=== PATIENT | female | born 1955 | race Hispanic/Latino ===

== ENCOUNTER 2018-04-29 15:31 | Outpatient (CLI) | payer OTHER ==
--- NOTE | 2018-04-29 18:29 | MRI ---
MRI OF RIGHT SHOULDER WITHOUT CONTRAST: 04/29/18 HISTORY: Shoulder injury. Rotator cuff tear. COMPARISON: None. FINDINGS: BICEPS TENDON: Mild intra-articular tendinosis. No tear. LABRUM: There is a posterior superior labral tear. This does not extend to the biceps anchor nor anterior to the biceps tendon. ROTATOR CUFF: Mild tendinosis subscapularis. There is low grade hidden interstitial tear of the footplate of the an terior 1 cm supraspinatus tendon approximately 20% in thickness. Low grade interstitial tearing of th e infraspinatus tendon and bursal surface fraying. MUSCLES: The muscle signal and bulk is normal. BONES: Type I acromion. No fracture or malalignment. SOFT TISSUES: Mild loss of subcoracoid fat and edema in the rotator interval. IMPRESSION: 1. Mild subacromial subdeltoid bursal effusion. 2. Hidden interstitial tear footplate of the anterior 1 cm fibers supraspinatus tendon involving less than 20% of the foot plate thickness. 3. Mild bursal surface fraying of supraspinatus tendon with some narrowing of the subacrominal s pace due to lateral downsloping of the acromion. 4. Posterior superior labral tear. POS: H
== END 2018-04-29 15:32 | disposition home or self-care (01) ==
LOC: MRI 15:31
PROVIDERS: ATTEND Physical Medicine & Rehabilitation
DX: S49.91XA Unspecified injury of right shoulder and upper arm, initial encounter (principal); S46.011A Strain of muscle(s) and tendon(s) of the rotator cuff of right shoulder, initial encounter; S43.491A Other sprain of right shoulder joint, initial encounter

== ENCOUNTER 2021-09-02 14:05 | Inpatient (IN) | payer BC ==
[2021-09-02 15:27] VITALS: BMI 23.3
[2021-09-02] MEDS ORDERED: Dextrose 50% Abboject 50 ML SYRINGE SLOW IVP PRN (16:08)
[2021-09-02] MEDS ORDERED: hydrALAZINE 20 MG/ML VIAL SLOW IVP PRN (16:08)
[2021-09-02] MEDS ORDERED: Ondansetron PF 4 MG/2 ML Vial IVP PRN (16:08)
[2021-09-02] MEDS ORDERED: Dextrose 5% in Water 1,000 ML IV PRN (16:08)
[2021-09-02] MEDS: Sodium Chloride 0.9% 1,000 ML IV SCH (17:09)
[2021-09-02] MEDS: Acetaminophen 500 MG TAB PO SCH ×2 (17:09→23:28)
[2021-09-02] MEDS: Famotidine 20 MG TAB PO SCH (20:39)
[2021-09-02] MEDS: Senokot S 8.6-50 MG TAB PO SCH (20:39)
[2021-09-02] MEDS: Ciprofloxacin 500 MG TAB PO SCH (20:39)
[2021-09-03] MEDS: Acetaminophen 500 MG TAB PO SCH ×2 (03:20→10:05)
[2021-09-03] MEDS: Sodium Chloride 0.9% 1,000 ML IV SCH (03:21)
[2021-09-03 05:36] LABS: #Lymphocytes 2.6 thou/uL (1.20-3.40); #Monocytes 0.4 thou/uL (0.11-0.59); #Neutrophils 2.8 thou/uL (1.40-6.50); %Basophils 0.2 % (0.0-1.0); %Eosinophils 0.1 % (0.0-10.0); %Lymphocytes 44.4 % (21.0-51.0); %Monocytes 6.9 % (0.0-10.0); %Neutrophils 48.5 % (42.0-75.0); Hemoglobin 14.1 g/dL (12.0-16.0); Mean Corpuscular HGB CONC 32.7 g/dL (32.0-36.0); Mean Corpuscular Hemoglobin 31.3 pg (27.0-31.0); Mean Corpuscular Volume 95.8 fL (78.0-98.0); Mean Platelet Volume 7.8 fL (7.4-10.4); Platelet Count 170 thou/uL (130-400); RBC Distribution Width 12.3 % (11.5-14.5); White Blood Cell (WBC) Count 5.8 thou/uL (4.8-10.8)
[2021-09-03 06:01] LABS: ALT (SGPT) 82 U/L (8-55); AST (SGOT) 55 U/L (5-34); Albumin 3.6 g/dL (3.4-4.8); Alkaline Phosphatase 90 U/L (40-110); Anion Gap 12 mmol/L (10-20); BUN (Urea Nitrogen) 9 mg/dL (9.8-20.1); Bilirubin, Total 0.8 mg/dL (0.2-1.2); Calc. Creatinine Clearance 76 mL/min (70-130); Calcium 8.8 mg/dL (7.8-10.44); Carbon Dioxide 24 mmol/L (23-31); Chloride 106 mmol/L (98-107); Globulin 2.8 g/dL (2.4-3.5); Glucose 114 mg/dL (80-115); Magnesium 2.1 mg/dL (1.6-2.6); Phosphorus 3.9 mg/dL (2.3-4.7); Potassium 3.9 mmol/L (3.5-5.1); Protein, Total 6.4 g/dL (5.8-8.1); Sodium 138 mmol/L (136-145)
[2021-09-03 08:12] VITALS: TEMP 97.6
[2021-09-03] MEDS ORDERED: Polyethylene Glycol 3350 17 GM Packet PO SCH (09:00)
[2021-09-03] MEDS: Famotidine 20 MG TAB PO SCH (10:05)
[2021-09-03] MEDS: Senokot S 8.6-50 MG TAB PO SCH (10:09)
[2021-09-03] MEDS: Ciprofloxacin 500 MG TAB PO SCH (10:09)
[2021-09-03 11:36] LABS: SARS-CoV-2 PCR by NAA DETECTED (NotDetected)
[2021-09-03 21:57] VITALS: BP 120/64
[2021-09-05] MEDS ORDERED: FLU VACC QS2021-22(6MOS UP)/PF 60 MCG/0.5 ML SYRINGE IM ONE (18:45)
== END 2021-09-03 18:32 | disposition home or self-care (01) | DRG 82 ==
LOC: NEURO 15:13 → OBSVTOIN 16:08
PROVIDERS: ADMIT Surgery; ATTEND Surgery
DX: S06.5X9A Traumatic subdural hemorrhage with loss of consciousness of unspecified duration, initial encounter (principal); U07.1 COVID-19; K86.2 Cyst of pancreas; S06.6X9A Traumatic subarachnoid hemorrhage with loss of consciousness of unspecified duration, initial encounter; I82.811 Embolism and thrombosis of superficial veins of right lower extremity; N39.0 Urinary tract infection, site not specified; R74.01 Elevation of levels of liver transaminase levels; W18.30XA Fall on same level, unspecified, initial encounter; Z90.49 Acquired absence of other specified parts of digestive tract; Z90.09 Acquired absence of other part of head and neck; Z79.82 Long term (current) use of aspirin
CPT/HCPCS: 36415; 70450; 80053; 83735; 84100; 85025; 87086; 93880; J7050; U0003; U0005

== ENCOUNTER → 2022-09-19 | Day surgery (SDC) | payer BC | END | disposition home or self-care (01) | LOC: BICULT 13:01 | PROVIDERS: ATTEND Family Medicine | PROC: 0H9U3ZX Drainage of Left Breast, Percutaneous Approach, Diagnostic (ICD-10-PCS; principal; 2022-09-19) | DX: C50.812 Malignant neoplasm of overlapping sites of left female breast (principal); Z17.0 Estrogen receptor positive status [ER+] | CPT/HCPCS: 19083; 88305 ==

== ENCOUNTER 2022-11-07 09:46 | Outpatient (CLI) | payer BC | END 2022-11-07 09:47 | disposition home or self-care (01) | LOC: BICMRI 09:46 | PROVIDERS: ATTEND Surgery | DX: C50.412 Malignant neoplasm of upper-outer quadrant of left female breast (principal) | CPT/HCPCS: 82565; A9577; C8908 ==